=== PATIENT | male | born 1985 | race Caucasian/White ===

== ENCOUNTER 2024-06-18 05:47 | Outpatient (CLI) | payer OTHER | END 2024-06-18 23:59 | disposition home or self-care (01) | LOC: MRI02 05:47 → MRI 23:59 | PROVIDERS: ATTEND Internal Medicine | DX: M19.032 Primary osteoarthritis, left wrist (principal); M89.312 Hypertrophy of bone, left shoulder; M77.8 Other enthesopathies, not elsewhere classified; M25.512 Pain in left shoulder; M25.532 Pain in left wrist | CPT/HCPCS: 73221 ==